=== PATIENT | female | born 1975 | race Asian ===

== ENCOUNTER 2018-04-27 05:10 | Inpatient (IN) | payer MEDICAID ==
[~2018-04-27] VITALS: Ht 154.9 cm; Wt 46.7 kg
[2018-04-27 05:26] VITALS: Ht 154.9 cm; Wt 46.7 kg
[2018-04-27 06:17] LABS: BASOPHIL % 0.1 % (0-2); PLATELET COUNT 202 x10^3mcL (130-400)
[2018-04-27 06:24] LABS: RED CELL DISTRIBUTION WIDTH 14.7 % (11.5-14.5)
[2018-04-27 06:28] LABS: BILIRUBIN TOTAL 0.5 mg/dL (0.20-1.00); CALCIUM 9.4 mg/dL (8.5-10.1); CARBON DIOXIDE 26.4 mmol/L (21-32); POTASSIUM SERUM 5.5 mmol/L (3.5-5.1)
[2018-04-27 06:29] LABS: ALBUMIN 3.3 g/dL (3.4-5.0)
[2018-04-27 06:32] LABS: CREATININE SERUM 10.7 mg/dL (0.6-1.0)
[2018-04-27] MEDS ORDERED: NATURE'S BLEND500 MG (11:41)
[2018-04-27] MEDS ORDERED: GLIPIZIDE2.5 M1 PO (11:41)
[2018-04-27] MEDS ORDERED: CLONIDINE0.2 M1 (11:41)
[2018-04-27] MEDS ORDERED: VITD PO (11:42)
[2018-04-27] MEDS ORDERED: LIVER COMPLEX1 EACH (11:42)
[2018-04-27 13:10] VITALS: BP 197/93
[2018-04-27 13:40] VITALS: BP 157/95
[2018-04-27 17:04] VITALS: BP 136/63
[2018-04-27 21:04] VITALS: BP 120/54
[2018-04-28 05:44] VITALS: BP 154/72
[2018-04-28 09:40] VITALS: BP 140/86
[2018-04-28 12:55] VITALS: BP 140/86
[2018-04-28 12:56] VITALS: BP 165/78
== END 2018-04-28 14:35 | disposition home or self-care (01) | DRG 137 ==
LOC: ED 05:10 → DU 07:49
PROVIDERS: Emergency Medicine; ADMIT Internal Medicine
PROC: 5A1D70Z Performance of Urinary Filtration, Intermittent, Less than 6 Hours Per Day (ICD-10-PCS; principal; 2018-04-27)
DX: J69.0 Pneumonitis due to inhalation of food and vomit (principal); E11.22 Type 2 diabetes mellitus with diabetic chronic kidney disease; E46 Unspecified protein-calorie malnutrition; I12.0 Hypertensive chronic kidney disease with stage 5 chronic kidney disease or end stage renal disease; E11.65 Type 2 diabetes mellitus with hyperglycemia; N18.6 End stage renal disease; E87.1 Hypo-osmolality and hyponatremia; E87.5 Hyperkalemia; E83.39 Other disorders of phosphorus metabolism; Z68.1 Body mass index [BMI] 19.9 or less, adult; Z99.2 Dependence on renal dialysis; Z79.4 Long term (current) use of insulin
CPT/HCPCS: 36600; 82962; J2405; J2543; J2550; J3490; J7030; J7620; Q0092

== ENCOUNTER 2018-05-22 08:37 | Emergency (ER) | payer MEDICAID ==
[~2018-05-22 08:37] MED LIST: CLONIDINE0.2 M1; GLIPIZIDE2.5 M1 PO; LIVER COMPLEX1 EACH; NATURE'S BLEND500 MG; VITD PO
[2018-05-22 09:00] LABS: BASOPHIL % 0.1 % (0-2); PLATELET COUNT 228 x10^3mcL (130-400)
[2018-05-22 09:02] LABS: RED CELL DISTRIBUTION WIDTH 14.7 % (11.5-14.5)
[2018-05-22 09:15] LABS: CALCIUM 9.8 mg/dL (8.5-10.1); CARBON DIOXIDE 31.4 mmol/L (21-32); CREATININE SERUM 3.3 mg/dL (0.6-1.0); POTASSIUM SERUM 3.4 mmol/L (3.5-5.1)
[2018-05-22 09:19] LABS: ALBUMIN 3.6 g/dL (3.4-5.0); BILIRUBIN TOTAL 0.68 mg/dL (0.20-1.00)
[2018-05-22 09:26] LABS: T3 TOTAL 0.83 ng/mL
[2018-05-22 09:29] LABS: CHOLESTEROL/HDL RATIO 2.8; TOTAL PROTEIN, SERUM 8.9 g/dL (6.4-8.2)
[2018-05-22 09:34] LABS: FREE T4 1.71 ng/dL (0.76-1.46)
[2018-05-22 09:40] LABS: FREE THYROXINE INDEX 5.1 ug/dL (1.4-4.5); T4(THYROXINE) 14.3 ug/dL (4.7-13.3)
[2018-05-22 11:31] VITALS: BP 170/77
== END 2018-05-22 11:31 | disposition home or self-care (01) ==
LOC: ED 08:37
PROVIDERS: Specialist
DX: R42 Dizziness and giddiness (principal); R11.0 Nausea; E11.22 Type 2 diabetes mellitus with diabetic chronic kidney disease; N18.6 End stage renal disease; Z99.2 Dependence on renal dialysis
CPT/HCPCS: 83880; 84439; J0780; J2405; J8597; Q0092